=== PATIENT | male | born 1980 | race Caucasian/White ===

== ENCOUNTER 2025-05-06 08:17 | Emergency (ER) | payer SELFPAY ==
[~2025-05-06] VITALS: Ht 180.3 cm; Wt 105.0 kg
[2025-05-06 08:23] VITALS: O2SAT 98
[2025-05-06 08:48] LABS: BASOPHILS % 1.4 % (0.0-2.0); EOSINOPHILS % 2.4 % (0.0-5.0); HEMATOCRIT. 44.9 % (42.0-52.0); HEMOGLOBIN. 15.4 g/dL (14.0-18.0); LYMPHOCYTES % 29.4 % (20.0-50.0); MEAN PLATELET VOLUME 7.9 fl (7.4-10.4); MONOCYTES % 7.7 % (2.0-8.0); NEUTROPHILS % 59.1 % (40.0-76.0); PLATELET 239 x1000/uL (130-400); RED BLOOD CELL COUNT 5.47 mill/uL (4.7-6.1); RED CELL DISTRIBUTION WIDTH 13.8 % (11.6-14.6)
[2025-05-06] MEDS: ADENOSINE 3 MG/ML 2ML VIAL IV ONE (08:48)
[2025-05-06 09:03] LABS: CREATININE 1.1 mg/dL (0.6-1.3); UREA NITROGEN BLOOD 10 mg/dL (9-23)
[2025-05-06 09:04] LABS: TROPONIN I HIGH SENSITIVITY < 4 ng/L (3.0-53)
[2025-05-06 10:13] VITALS: BP 122/73; PULSE 77; RESP 16; TEMP 36.8; O2SAT 99
== END 2025-05-06 10:15 | disposition home or self-care (01) ==
LOC: ER 08:17 → CMPBEDREQ 05-07 13:41
DX: I47.10 Supraventricular tachycardia, unspecified (principal); Z91.040 Latex allergy status
CPT/HCPCS: 80048; 85025; 84484; 36415; 71045; 93005; 96374; 99291; J0153; Z7610 ×4; A4606